=== PATIENT | female | born 1940 | race Caucasian/White ===

== ENCOUNTER 2017-12-17 08:04 | Day surgery (SDC) | payer OTHER ==
[~2017-12-17] VITALS: Ht 160 cm; Wt 132.3 kg
[~2017-12-17 08:04] MED LIST: ASPIRIN EC325 MG PO; CELECOXIB200 MG PO; CLARITIN,ALAVAR10 MG PO; Claritin,Alavart PO; Cozaar PO; ENDOCET 5-3251 EACH PO; FLEXERIL10 MG PO; Flexeril PO; Glucophage PO; Hydrodiuril,Oretic,E PO; IRON325 M1 PO; LOSARTAN POTAS100 MG PO; METFORMIN HCL1000 MG PO; METOPROLOL SUC100 MG PO; MOBIC7.5 MG PO; OXYCONTIN15 MG PO; PERCOCET 7.51 TABLET PO; PRILOSEC40 MG PO; Percocet 5/325,Endoc PO; TYLENOL EXTRA500 MG PO; Toprol XL PO; Tylenol Extra Streng PO; Voltaren PO; ZOCOR40 MG PO; Zocor PO
[2017-12-17 09:04] VITALS: BP 156/75
[2017-12-17 14:46] VITALS: BP 139/83
[2017-12-17 17:13] VITALS: BP 126/82
[2017-12-17 20:51] VITALS: BP 137/66
[2017-12-17 23:27] VITALS: BP 141/73
[2017-12-18 04:00] VITALS: BP 134/81
[2017-12-18 05:27] LABS: HEMATOCRIT 38.1 % (36.0-46.0); HEMOGLOBIN 12.3 G/DL (11.9-15.5); MCV 89.2 FL (83-99)
[2017-12-18 07:52] VITALS: BP 124/65
[2017-12-18] MEDS ORDERED: ASPIRIN EC325 MG PO (08:04)
== END 2017-12-18 13:36 | disposition home or self-care (01) ==
LOC: SDC 08:04 → 2SOUTH 11:30 → 3EAST 11:30 → ENRESERV 11:54 → 3EAST 14:29 → SDC 16:10 → 3EAST 12-18 13:36
PROVIDERS: Orthopaedic Surgery
PROC: 0RRK0J7 Replacement of Left Shoulder Joint with Synthetic Substitute, Glenoid Surface, Open Approach (ICD-10-PCS; principal; 2017-12-17)
DX: M19.012 Primary osteoarthritis, left shoulder (principal); I10 Essential (primary) hypertension; E11.9 Type 2 diabetes mellitus without complications; E78.5 Hyperlipidemia, unspecified; E66.9 Obesity, unspecified; Z68.42 Body mass index [BMI] 45.0-49.9, adult; Z79.84 Long term (current) use of oral hypoglycemic drugs
CPT/HCPCS: 82948; 85014; 85018; 94799; C1776; G0378; J0330; J0690; J1170; J2250; J2405; J2795; J7030; J7050; J7120; Q0175